=== PATIENT | male | born 1955 | race Caucasian/White ===

== ENCOUNTER 2019-10-21 08:15 | Day surgery (SDC) | payer OTHER, SELFPAY ==
[2019-10-14 14:42] VITALS: BMI 24.8
[2019-10-21] VITALS (8 sets, daily range): BP systolic 118–177; BP diastolic 54–88; PULSE 50–73; RESP 11–24; TEMP 36.1–36.4; O2SAT 94–99; BMI 24.8
[2019-10-21] MEDS: LACTATED RINGERS 1,000 ML 42 ML IV ×2 (09:20→12:10)
--- NOTE | 2019-10-21 10:28 | PM.PREOP ---
Pre-operative Note Interval Note History & Physical reviewed/Exam performed by Physician: Yes Changes to H&P: No
[2019-10-21] MEDS: CEFAZOLIN 2 GM/100 ML FROZ.PIGGY IV (10:43)
--- NOTE | 2019-10-21 11:14 | SUR.OPER ---
Supine on padded OR bed, head on pillow, arms padded and tucked at sides, legs uncrossed, safety belt at thigh, tape over blanket over lower legs .
[2019-10-21] MEDS: BUPIVACAINE 0.25% W/ EPI 30 ML VIAL 75 ML INJ (11:29)
--- NOTE | 2019-10-21 13:27 | PM.OP.1 ---
Operative Date/Time/Diagnoses Date of procedure: 10/21/19 Time of procedure: 13:27 Pre-op diagnosis: bilateral inguinal hernias Post-op diagnosis: same Procedure & Clinicians Procedure: Laparoscopic mesh repair of bilateral direct inguinal hernias Same procedure as scheduled: Yes Indications: Bilateral inguinal hernias, symptomatic Surgeon: Radha Knight Click Yes if Unassisted: Yes Anesthesia Type: General Operative Notes Prosthetic devices, grafts, tissues, transplants, or devices: Bard mesh large on left, medium on right Estimated Blood Loss (mL): 1 Blood products transfused: none Procedure in detail: Laparoscopic, takedown of peritoneum, reduced hernia on left, placed large bard mesh, secured with absorbatack, took down peritoneum on right, same procedure, very thin flap; brought midline fat over to make flap for closure The patient was brought into the operating room and placed supine on the OR table. Sequential compression devices were placed on both legs and turned on. Appropriate perioperative antibiotics were given prior to the start of surgery. General anesthesia was induced the patient was intubated. A Rodriguez catheter was placed sterilely in the bladder. The abdomen was prepped and draped in sterile fashion. Surgical time-out was conducted. Local anesthetic was injected under the skin just inferior to the umbilicus and a 5 mm vertical incision was made at this site. The umbilical stalk was grasped with a Charly and elevated. A Veress needle was passed through the fascia into proper position. The position was tested with a saline drop test which was appropriate for intra-abdominal Veress needle placement. The abdomen was then insufflated in the usual fashion. Once insufflated to 15 mm Hg the Veress needle was removed and a 5 mm optical trocar was placed under direct vision using a 5 mm 30 degree scope. Once the camera was inside the abdomen I took a look around. There was no injury from port placement. Two additional ports were placed in a similar fashion in the right and left mid clavicular line at the level of the umbilicus, one handbreadth lateral to the umbilicus. The umbilical port was upsized to a 10mm port. Attention was turned to the pelvis, and both inguinal regions were evaluated. On the left there was a large, deep direct inguinal hernia, and on the right there was a moderate direct inguinal hernia. Starting on the left side local anesthetic was in the infiltrated into the abdominal wall using 20 mL of 0.25% Marcaine with epi, in the region of the expected peritoneal incision. Metzenbaum scissors attached to cautery were then used to incise the peritoneum transversely from the midline laterally to the ASIS, 10 cm superior to the inguinal hernia defect. The peritoneal flap was developed down to the inguinal hernia defect. When the direct pseudo sac was pulled down, there was no indirect or femoral hernia seen. Good exposure was achieved with dissection down over the bladder, and exposing the entire pubic bone past midline. Laterally dissection was carried to the ASIS. The cord was skeletonized and the cord structures, vessels, and vas deferens were left intact. Once a good view of the entire myopectineal orifice was established, a large 3DMax macro porous mesh was then brought into the field. I placed it through the 10 mm port and positioned it within the surgical defect covering both hernia defects with 5 cm overlap in each direction. I then secured the mesh to the pubic tubercle in 2 locations using a [employer] AbsorbaTack absorbable Tacker. I then secured it to the abdominal wall at the superior edge of the mesh, far away from the triangle of doom and the triangle of pain. These tacks were placed avoiding the epigastric vessels as well. Once the mesh was secured in place I brought up the peritoneal flap. There was no clam shelling or bending of the mesh when the peritoneal flap was brought up. I then secured the peritoneum up to the abdominal wall using the AbsorbaTack, with dissolvable tacks. There was no gapping of the peritoneal flap or exposed mesh. Attention was then turned to the right side, and the same procedure was performed step by step as was performed on the left. Beginning with local anesthetic, 20 cc of 0.25% Marcaine with epi were infiltrated into the abdominal wall at the location of the expected incision and dissection. Once the entire myopectineal orifice was exposed and the cord structures were dissected free of the flap, a medium-size right-sided 3DMax macro porous mesh was then brought into the field, placed through the umbilical port as was done for the left side, and secured in place with the AbsorbaTack Tacker. The peritoneal flap was brought up, without tension, and was secured in the same way with the AbsorbaTack Tacker. At this point the mesh was well positioned, secured, and well covered. There was no exposed mesh, no bleeding, and the peritoneal flap was in good position. At this point the umbilical port site was closed with 0 Vicryl suture in the fascia using a Mode-Maisha suture Passer. Insufflation was then removed from the abdomen, and the umbilical port site was closed with 3-0 Vicryl in the subcutaneous layers, and 4 Monocryl in the skin. The other 2 port sites were closed with 4 Monocryl in the skin. Additional local anesthetic was infiltrated into the port sites for a total of 75 mL for the case. Each port site was sealed with Dermabond. Local anesthetic was given at each of the port sites and in the fascia. This concluded the procedure. At this point the needle sponge and instrument counts were correct. Patient was awakened from anesthesia and extubated. The Rodriguez catheter was removed, and the testicles were brought down to ensure they were in proper position. He was transferred to the postanesthesia care unit in stable condition. Complications: none Post-operative Condition: stable Disposition: PACU
== END 2019-10-21 15:04 | disposition home or self-care (01) ==
PROVIDERS: PCP Family Medicine; Referring Provider Surgery; Visit Provider Surgery
PROC: 0YQ64ZZ Repair Left Inguinal Region, Percutaneous Endoscopic Approach (ICD-10-PCS; CPT 49650; principal; 2019-10-21 10:15)
DX: K40.20 Bilateral inguinal hernia, without obstruction or gangrene, not specified as recurrent (principal)
CPT/HCPCS: 49650; C1781; J0330; J0690; J1100; J2405; J2704; J3010

== ENCOUNTER → 2019-11-18 12:36 | Outpatient (CLI) | payer OTHER, SELFPAY ==
[2019-11-18 14:03] LABS: INR 1.3 (0.9-1.3); Prothrombin Time 14.9 SECONDS (10.1-12.7)
== END ==
PROVIDERS: PCP Family Medicine; Visit Provider Family Medicine
DX: R31.0 Gross hematuria (principal)
CPT/HCPCS: 85610

== ENCOUNTER → 2019-11-20 07:17 | Outpatient (CLI) | payer OTHER, SELFPAY ==
--- NOTE | 2019-11-20 | DI.US.S_ITS ---
PROCEDURE: US ABDOMEN COMPLETE INDICATIONS: GROSS HEMATURIA TECHNIQUE: Real-time scanning was performed of the abdominal and retroperitoneal organs, with image documentation. COMPARISON: None. FINDINGS: Liver: Liver is normal in size and homogeneous in echotexture. Gallbladder: Nondilated. No stones or sludge. Normal gallbladder wall thickness. No pericholecystic fluid. Negative sonographic Pires's sign. Biliary ducts: Intrahepatic bile ducts are non-dilated. Extrahepatic bile duct caliber measures 6 mm. Normal is 6-7 mm or less in diameter, or 10 mm or less post-cholecystectomy. Pancreas: Visualized portions of the pancreas are sonographically normal. Spleen: Spleen is normal in size and homogeneous in echotexture. Kidneys: Kidneys are normal in size and echotexture. Right kidney measures 12.8 cm long; left kidney measures 12.5 cm long. No hydronephrosis or nephrolithiasis. No solid masses. Left simple peripelvic cyst measuring 2.2 cm. Aorta: Visualized aorta is normal in caliber at less than 3 cm. Iliacs: Proximal common iliac arteries are normal in caliber at less than 2.5 cm. IVC: Intrahepatic inferior vena cava is patent. Miscellaneous: No free abdominal fluid. IMPRESSION: 1. No hydronephrosis demonstrated. Suspected small simple left peripelvic cyst. 2. No renal mass identified. 3. No gallstones. Consider CT IVP for further evaluation of the upper urinary tracts in this patient with hematuria. Dictated by: Roger Sanches M.D. on 11/20/2019 at 8:59 Approved by: Roger Sanches M.D. on 11/20/2019 at 9:07
== END ==
PROVIDERS: PCP Family Medicine; Referring Provider Family Medicine; Visit Provider Family Medicine
DX: R31.0 Gross hematuria (principal)
CPT/HCPCS: 76700

== ENCOUNTER → 2021-09-20 12:07 | Outpatient (CLI) | payer OTHER, SELFPAY ==
--- NOTE | 2021-09-20 12:11 | DI.RAD.S_ITS ---
PROCEDURE: XR FINGER RT MIN 2V INDICATIONS: RT RING FINGER INJURY TECHNIQUE: AP hand, 2 views of the right 4th finger(s) acquired. COMPARISON: None. FINDINGS: Bones: No fractures or dislocations. No suspicious bony lesions. Soft tissues: No suspicious soft tissue calcifications. Soft tissue swelling noted in the 4th finger. No soft tissue gas or radiodense foreign body. IMPRESSION: No fracture. No osseous lesion. If symptoms and/or clinical suspicion for pathology persists, further assessment with repeat radiographs (7-10 days) or advanced imaging (e.g. CT, MRI or bone scan) should be considered. Dictated by: Abida Coy MD, PhD on 09/20/2021 at 13:29 Approved by: Abida Coy MD, PhD on 09/20/2021 at 13:29
== END ==
PROVIDERS: PCP Family Medicine; Referring Provider Family Medicine; Visit Provider Family Medicine
DX: M79.5 Residual foreign body in soft tissue (principal)
CPT/HCPCS: 73140

== ENCOUNTER → 2023-07-20 11:50 | Outpatient (CLI) | payer MEDICARE, OTHER, SELFPAY ==
[2023-07-20 12:53] LABS: Influenza A - CEPHEID Flu A NEGATIVE (NEGATIVE); Influenza B - CEPHEID Flu B NEGATIVE (NEGATIVE); Respiratory Syncytial Virus Negative (Negative)
[2023-07-20 13:02] LABS: COVID-19 CEPHEID 4-PLEX PCR Negative (Negative)
== END ==
PROVIDERS: PCP Family Medicine; Visit Provider Nurse Practitioner Family
DX: R05.9 Cough, unspecified (principal); J02.9 Acute pharyngitis, unspecified
CPT/HCPCS: 0241U; 87070

== ENCOUNTER → 2024-05-11 10:45 | Outpatient (CLI) | payer MEDICARE, OTHER, SELFPAY ==
--- NOTE | 2024-05-11 | DI.RAD.S_ITS ---
PROCEDURE: XR CHEST 2V INDICATIONS: chest pain TECHNIQUE: 2 views of the chest were acquired. COMPARISON: None. FINDINGS: Surgical changes and devices: None. Lungs and pleura: Lungs are clear. No pleural effusions or pneumothorax. Mediastinum: Mediastinal contours are normal. Heart size is normal. Bones and chest wall: No suspicious bony abnormalities. Soft tissues appear unremarkable. IMPRESSION: No acute cardiopulmonary abnormality is seen. Dictated by: Alisa Back M.D. on 05/11/2024 at 15:01 Approved by: Alisa Back M.D. on 05/11/2024 at 15:02
== END ==
PROVIDERS: PCP Family Medicine; Referring Provider Family Medicine; Visit Provider Family Medicine
DX: R07.9 Chest pain, unspecified (principal)
CPT/HCPCS: 71046

== ENCOUNTER 2024-08-03 10:16 | Day surgery (SDC) | payer MEDICARE, OTHER, SELFPAY ==
--- NOTE | 2024-08-03 11:01 | PM.HP.1 ---
History of Present Illness History of Present Illness [place] [facility] [place] [facility] Medical History Arthritis Bilateral inguinal hernia Hx of laceration of skin (~2012) Surgical History History of ventral hernia repair Hx of elbow surgery (~2014) Hx of hernia repair (~1989) Family History Father Heart disease Mother Cancer Social History marital status: household members: spouse occupational status: previously employed Smoking Status: Former smoker alcohol intake: current Meds Home Medications and Allergies Home Medications Medication Instructions Recorded Confirmed Type aspirin 81 mg tablet,delayed 81 mg PO DAILY 09/29/19 07/20/23 History release (Adult Aspirin Regimen) cholecalciferol (vitamin D3) 25 1,000 unit PO DAILY 09/29/19 07/20/23 History mcg (1,000 unit) capsule coenzyme Q10 200 mg capsule 200 mg PO DAILY 09/29/19 07/20/23 History ginkgo biloba 40 mg tablet 120 mg PO DAILY 09/29/19 07/20/23 History cuppdgcvpmn-T-Kqszucnglljxplbmrc 1 tab PO 4-6XD 09/29/19 07/20/23 History 500 mg-200 mg tablet multivitamin 1 cap PO BID 09/29/19 07/20/23 History omega-3 fatty acids 1,000 mg 1,200 mg PO DAILY 09/29/19 07/20/23 History capsule (Fish Oil Concentrate) docusate sodium 100 mg capsule 100 mg PO BID pervent post op 10/21/19 07/20/23 Rx constipation #60 caps amoxicillin 500 mg-potassium 1 tab PO TID #15 tabs 07/20/23 07/20/23 Rx clavulanate 125 mg tablet (Augmentin) Allergies Allergy/AdvReac Type Severity Reaction Status Date / Time ANTI-INFLAMMATORY DRUG Allergy Unknown ITCHY RASH Uncoded 08/03/24 11:01 Exam Narrative Exam Narrative: Oropharynx free of lesions Chest clear to auscultation percussion Cardiac exam reveals no S3 or murmur Assessment & Plan Assessment & Plan narrative: Need for screening colonoscopy. Risks, benefits, alternatives have been explained. Time-Based Coding :: [TOTAL MINUTES] spent with patient and on the chart (including review of chart, obtaining history, exam, reviewing outside data, placing orders, documenting exam and treatment plan, and counseling patient) on [DATE].
--- NOTE | 2024-08-03 11:02 | PM.OP.COLON ---
Operative Date/Time/Diagnoses Date of procedure: 08/03/24 Pre-op diagnosis: See indication and findings Procedure & Clinicians Study performed: Colonoscopy Indications: Screening Procedure Notes Procedure in detail: After informed consent was obtained the patient was placed in left lateral decubitus position. The video colonoscope was introduced the rectum slowly advanced cecum. Preparation was good. On slow withdrawal mucosa was carefully examined. The scope was removed. The patient tolerated procedure well. Blood loss none Complications none Sedation mac Findings 1. Normal colonoscopy to cecum Patient should have follow-up colonoscopy in 10 years
[2024-08-03 11:14] VITALS: BP 145/84; PULSE 50; RESP 16; TEMP 36.6; O2SAT 100
[2024-08-03 11:58] VITALS: BP 128/85; PULSE 62; RESP 16; TEMP 36.2; O2SAT 98
[2024-08-03 12:00] VITALS: BP 120/85; PULSE 70; RESP 13; O2SAT 98
[2024-08-03 12:07] VITALS: BP 121/80; PULSE 80; RESP 16; TEMP 36.2; O2SAT 98
== END 2024-08-03 12:25 | disposition home or self-care (01) ==
PROVIDERS: PCP Family Medicine; Referring Provider Internal Medicine Gastroenterology; Visit Provider Internal Medicine Gastroenterology
PROC: 0DJD8ZZ Inspection of Lower Intestinal Tract, Via Natural or Artificial Opening Endoscopic (ICD-10-PCS; CPT 45378; principal; 2024-08-03 11:30)
DX: Z12.11 Encounter for screening for malignant neoplasm of colon (principal); E87.5 Hyperkalemia; S09.90XA Unspecified injury of head, initial encounter; R07.9 Chest pain, unspecified; W18.30XA Fall on same level, unspecified, initial encounter; Z79.82 Long term (current) use of aspirin
CPT/HCPCS: G0121; 36415; 71045; 80053; 82550; 83690; 83735; 83880; 84132; 84484; 85025; 85610; 85730; 93005; 96360; 99284; J2704; J3010

== ENCOUNTER 2024-08-03 15:26 | Emergency (ER) | payer MEDICARE, OTHER, SELFPAY ==
[2024-08-03] VITALS (13 sets, daily range): BP systolic 133–152; BP diastolic 73–83; PULSE 52–64; RESP 17–26; TEMP 37.2; O2SAT 96–100; BMI 22.3
--- NOTE | 2024-08-03 16:24 | DI.RAD.S_ITS ---
PROCEDURE: XR CHEST 1V INDICATIONS: chest pain TECHNIQUE: One view of the chest was acquired. COMPARISON: [facility], CR, XR CHEST 2V, 05/11/2024, 10:48. FINDINGS: Surgical changes and devices: None. Lungs and pleura: Low lung volumes are seen bilaterally. Lungs are clear. No pleural effusions or pneumothorax. Mediastinum: Mediastinal contours appear normal. Heart size is normal. Bones and chest wall: No suspicious bony lesions. Overlying soft tissues appear unremarkable. IMPRESSION: No acute cardiopulmonary abnormality is seen. Approved by: Aiden Celestin M.D. on 08/03/2024 at 17:29
--- NOTE | 2024-08-03 16:49 | EKG_ITS ---
[place] [id number] [place] [id number] Test Date: 2024-08-03 Pat Name: Javier Tay Department: [facility] Room: Gender: Male It Service Manager: CONRAD : 1955 Requested By: Order Number: [id number] Reading MD: Ahmet Arellano Measurements Intervals [place] Rate: 57 P: 33 GA: 206 QRS: -24 QRSD: 90 T: -16 QT: 402 QTc: 391 Interpretive Statements Sinus bradycardia Minimal voltage criteria for LVH, may be normal variant ( Fredrick product ) Electronically Signed On 08-05-2024 19:03:14 PST by Ahmet Arellano
[2024-08-03 16:56] LABS: Add Manual Diff / Slide Review NO; Basophils Absolute Auto 0 /uL (0-100); Basophils Percent Auto 0.5 % (0-2); Eosinophils Absolute Auto 200 /uL (0-450); Eosinophils Percent Auto 2.3 % (2-4); Hematocrit 48.2 % (41-53); Hemoglobin 16.1 g/dL (13.5-17.5); Lymphocytes Absolute Auto 1200 /uL (1100-4500); Mean Corpuscular HGB Conc 33.4 % (30-36); Mean Corpuscular Hemoglobin 30.6 PG (26-34); Mean Corpuscular Volume 91.4 fL (80-100); Monocytes Absolute Auto 700 /uL (0-900); Monocytes Percent Auto 7.3 % (3-14); Neutrophils Absolute Auto 7500 /uL (1500-7000); Neutrophils Percent Auto 77.9 % (50-75); Platelet Count 266 X10^3/uL (150-400); Red Blood Cell Count 5.27 X10^6/uL (4.5-5.9); Red Cell Distribution Width 13.8 % (11.6-14.8); White Blood Cell Count 9.6 X10^3/uL (4.5-11.0)
[2024-08-03 17:07] LABS: INR 1.2 (0.9-1.3); Prothrombin Time 13.8 SECONDS (9.4-12.5)
[2024-08-03 17:09] LABS: PTT Partial Thromboplastin Tim 32 SECONDS (25.1-36.5)
[2024-08-03 17:11] LABS: Alanine Aminotransferase 31 IU/L (<50); Albumin 4.6 g/dL (3.5-5.0); Albumin Globulin Ratio 1.2 (1.0-2.8); Alkaline Phosphatase 71 U/L (38-126); Aspartate Aminotransferase 43 IU/L (17-59); BUN Creatinine Ratio 16.8 (6-22); Bilirubin Total 1.3 mg/dL (0.2-1.3); Blood Urea Nitrogen 20 mg/dL (9-20); Calcium 9.8 mg/dL (8.4-10.2); Carbon Dioxide 29 mmol/L (22-32); Chloride 101 mmol/L (98-107); Creatine Kinase 121 U/L (55-170); Estimated Glomerular Filt Rate > 60 mL/min (>60); Globulin 3.8 g/dL (1.7-4.1); Glucose 98 mg/dL (80-110); HEMOLYSIS < 15 (0-50); Lipase 191 U/L (23-300); Sodium 134 mmol/L (137-145); Total Protein 8.4 g/dL (6.3-8.2)
[2024-08-03 17:18] LABS: Potassium 5.6 mmol/L (3.4-5.1)
[2024-08-03 17:23] LABS: NT-proBNP (BNP-Adult 18+) 153 pg/mL (<125); Troponin I < 0.012 ng/mL (0.01-0.034)
--- NOTE | 2024-08-03 18:29 | ED.FALL ---
HPI - Fall General Chief Complaint: Fall Stated Complaint: GLF, head injury, no blood thinners Time Seen by Provider: 08/03/24 15:49 Source: patient Mode of arrival: Ambulatory History of Present Illness HPI Narrative: Patient is a 68-year-old male history of hyperlipidemia presenting today with syncopal episode. He reports that he was prepping for a colonoscopy. He was drinking 96 oz of Gatorade along with magnesium citrate. He started the prep last night around 6:00 p.m. this morning he took his 2nd dose of the combo and went to the kitchen. He does not remember exactly what happened but he did fall and hit his head. He was able to get up and go back to bed. He proceeded with a colonoscopy which is reported normal. He later went back to the kitchen where he saw some of the skin from his scalp. He has not on anti coagulation medication he does take a baby aspirin daily. No numbness tingling or weakness. No ongoing headache confusion neck pain nausea or vomiting. He was discussing what happened with friends and they encouraged him to come to the emergency department. He denies any sort of chest pain or palpitations. Reports that he frequently gets dizzy when he stands up cause his resting heart rate is in the 50s. No abdominal pain or any other symptoms Related Data Home Medications Medication Instructions Recorded Confirmed aspirin 81 mg tablet,delayed 81 mg PO DAILY 09/29/19 08/03/24 release (Adult Aspirin Regimen) cholecalciferol (vitamin D3) 25 1,000 unit PO DAILY 09/29/19 08/03/24 mcg (1,000 unit) capsule coenzyme Q10 200 mg capsule 200 mg PO DAILY 09/29/19 08/03/24 ginkgo biloba 40 mg tablet 120 mg PO DAILY 09/29/19 08/03/24 lydhysdrrim-J-Qwyemqyvrygvlxqpyz 1 tab PO 4-6XD 09/29/19 08/03/24 500 mg-200 mg tablet multivitamin 1 cap PO BID 09/29/19 08/03/24 omega-3 fatty acids 1,000 mg 1,200 mg PO DAILY 09/29/19 07/20/23 capsule (Fish Oil Concentrate) Allergies Allergy/AdvReac Type Severity Reaction Status Date / Time ANTI-INFLAMMATORY DRUG Allergy Unknown ITCHY RASH Uncoded 08/03/24 11:01 Patient History Medical History Arthritis Bilateral inguinal hernia Hx of laceration of skin (~2012) Surgical History History of ventral hernia repair Hx of elbow surgery (~2014) Hx of hernia repair (~1989) Family History Father Heart disease Mother Cancer Social History marital status: household members: spouse occupational status: previously employed Smoking Status: Former smoker alcohol intake: current Smoking Status: Former smoker alcohol intake frequency: a few times a week Substance Use Type: marijuana Exam Initial Vital Signs Initial Vital Signs: Vital Signs Temperature 99 F 08/03/24 15:35 Pulse Rate 63 08/03/24 15:35 Respiratory Rate 20 08/03/24 15:35 Blood Pressure 143/83 H 08/03/24 15:35 Pulse Oximetry 100 08/03/24 15:35 Oxygen Delivery Method Room Air 08/03/24 15:35 GENERAL: Alert pleasant 68-year-old male HEENT: Head atraumatic,EOMI, pupils reactive, face symmetric, moist mucous membranes NECK: no vertebral tenderness CARDIOVASCULAR: Regular rate and rhythm without murmurs, rubs or gallops. RESPIRATORY: Breath sounds equal bilaterally, no wheezes rales or rhonchi. ABDOMEN: Soft, nontender. Normoactive bowel sounds all 4 quadrants. No guarding or rebound. EXTREMITIES: Normal range of motion, no clubbing or edema. Neurovascularly intact NEUROLOGICAL: Alert and oriented x4.Normal gait and speech. Cranial nerves II through XII grossly intact. Marketing And Development Coordinator strength equal bilaterally. SKIN: Warm, dry, no laceration, no petechiae, no rashes or lesions. Course Orders Ordered: ED Orders 08/03/24 16:24 XR chest 1V Stat EKG-12 Lead Stat 08/03/24 16:48 Complete Blood Count AUTO DIFF Stat Comprehensive Metabolic Panel Stat Lipase Stat Magnesium Stat NT-proBNP (BNP-Adult 18+) Stat PTT Partial Thromboplastin Chaitanya Stat Prothrombin Time INR Stat Troponin & CK Cardiac Panel Stat 08/03/24 20:00 Potassium Stat Discontinued Medications Sodium Chloride (Normal Saline 0.9%) 1,000 mls @ 1,000 mls/hr IV BOLUS ONE Stop: 08/03/24 19:39 Last Infusion: 08/03/24 19:55 Dose: Infused Documented By: Admin: 08/03/24 19:23 Dose: 1,000 mls/hr Documented By: TAJ Vital Signs Vital signs: Vital Signs - 8 hr 08/03/24 17:00 08/03/24 17:00 08/03/24 17:00 Pulse Rate 63 64 Respiratory Rate 26 H 22 Blood Pressure 145/78 H 145/78 H Pulse Oximetry 97 97 Oxygen Delivery Method Room Air 08/03/24 17:30 08/03/24 17:30 08/03/24 17:30 Pulse Rate 58 L 58 L Respiratory Rate 20 Blood Pressure 137/79 137/79 Pulse Oximetry 96 96 Oxygen Delivery Method Room Air 08/03/24 18:00 08/03/24 18:00 08/03/24 18:00 Pulse Rate 54 L 54 L Respiratory Rate 22 22 Blood Pressure 136/77 136/77 Pulse Oximetry 97 97 Oxygen Delivery Method 08/03/24 18:30 08/03/24 18:30 08/03/24 18:30 Pulse Rate 60 60 Respiratory Rate 20 Blood Pressure 136/74 136/74 Pulse Oximetry 97 97 Oxygen Delivery Method 08/03/24 19:00 08/03/24 19:00 08/03/24 19:00 Pulse Rate 52 L 53 L Respiratory Rate 23 23 Blood Pressure 141/77 H 141/77 H Pulse Oximetry 99 99 Oxygen Delivery Method Room Air 08/03/24 19:30 08/03/24 20:00 08/03/24 20:27 Pulse Rate 54 L 54 L 52 L Respiratory Rate 24 17 18 Blood Pressure 133/77 Pulse Oximetry 97 100 98 Oxygen Delivery Method Room Air 08/03/24 20:27 08/03/24 20:30 08/03/24 20:30 Pulse Rate 52 L Respiratory Rate 20 Blood Pressure 137/77 145/73 H Pulse Oximetry 100 Oxygen Delivery Method MDM - Fall Lab Data 08/03/24 16:48 08/03/24 20:00 Labs: Lab Results 08/03/24 08/03/24 Range/Units 16:48 20:00 WBC 9.6 (4.5-11.0) X10^3/uL RBC 5.27 (4.5-5.9) X10^6/uL Hgb 16.1 (13.5-17.5) g/dL Hct 48.2 (41-53) % MCV 91.4 (80-100) fL MCH 30.6 (26-34) PG MCHC 33.4 (30-36) % RDW 13.8 (11.6-14.8) % Plt Count 266 (150-400) X10^3/uL Neut % (Auto) 77.9 H (50-75) % Lymph % (Auto) 12.0 L (25-40) % [place] % (Auto) 7.3 (3-14) % Eos % (Auto) 2.3 (2-4) % Baso % (Auto) 0.5 (0-2) % Neut # (Auto) 7500 H (0692-9961) /uL Lymph # (Auto) 1200 (8370-4903) /uL [place] # (Auto) 700 (0-900) /uL Eos # (Auto) 200 (0-450) /uL Baso # (Auto) 0 (0-100) /uL PT 13.8 H (9.4-12.5) SECONDS INR 1.2 (0.9-1.3) APTT 32 (25.1-36.5) SECONDS Sodium 134 L (137-145) mmol/L Potassium 5.6 H 4.1 D (3.4-5.1) mmol/L Chloride 101 (98-107) mmol/L Carbon Dioxide 29 (22-32) mmol/L BUN 20 (9-20) mg/dL Creatinine 1.19 (0.66-1.25) mg/dL Estimated GFR > 60 (>60) mL/min BUN/Creatinine Ratio 16.8 (6-22) Glucose 98 (80-110) mg/dL Calcium 9.8 (8.4-10.2) mg/dL Magnesium 2.0 (1.6-2.3) mg/dL Total Bilirubin 1.3 (0.2-1.3) mg/dL AST 43 (17-59) IU/L ALT 31 (<50) IU/L Alkaline Phosphatase 71 (38-126) U/L Total Creatine Kinase 121 (55-170) U/L Troponin I < 0.012 (0.01-0.034) ng/mL NT-Pro-B Natriuret Pep 153 H (<125) pg/mL Total Protein 8.4 H (6.3-8.2) g/dL Albumin 4.6 (3.5-5.0) g/dL Globulin 3.8 (1.7-4.1) g/dL Albumin/Globulin Ratio 1.2 (1.0-2.8) Lipase 191 (23-300) U/L Imaging Data Chest x-ray: Radiologist's Impression: PROCEDURE: XR CHEST 1V INDICATIONS: chest pain TECHNIQUE: One view of the chest was acquired. COMPARISON: [facility], , XR CHEST 2V, 05/11/2024, 10:48. FINDINGS: Surgical changes and devices: None. Lungs and pleura: Low lung volumes are seen bilaterally. Lungs are clear. No pleural effusions or pneumothorax. Mediastinum: Mediastinal contours appear normal. Heart size is normal. Bones and chest wall: No suspicious bony lesions. Overlying soft tissues appear unremarkable. IMPRESSION: No acute cardiopulmonary abnormality is seen. Approved by: Aiden Celestin M.D. on 08/03/2024 at 17:29 ECG Data Attestation: I personally reviewed and interpreted this ECG as follows: Prior ECG tracings: not available for review Interpretation: Normal sinus rhythm rate 57 HI interval 206 QRS 90 QTC 391 no ischemic changes no peaked T-waves no priors to compare MDM Narrative Medical decision making narrative: [facility] CC: Fall Complicating co-morbidities: Preparing for colonoscopy Medical records reviewed: Colonoscopy procedure reviewed today Differential considered: Cardiac syncope dehydrated cheng electrolyte abnormality Exam documented above, pertinent findings include: Alert well-appearing 68-year-old male. He does have a small abrasion on the most superior part of his head, part of his hairs missing but no active bleeding or laceration. Neck is nontender interactive digital media specialist strength equal bilaterally Lab Test results independently reviewed as above. Pertinent findings: Potassium 5.6-->4.1 Creatinine 1.19 No prior blood work to compare all other blood work within normal limits Independently reviewed EKG as above no ischemia no priors to compare Imaging studies independently reviewed: Chest x-ray no acute cardiopulmonary process Consultations: None Treatments: 1 L IV fluids Re-evaluations: Patient remains awake alert nontoxic following directions Discussion: Patient 68-year-old male presents today with syncopal episode and head injury. I think this is due to his ongoing bradycardia along with colonoscopy prep and some mild dehydration. Vital they are actually stable he is awake alert oriented. He does have an area on his scalp were of his hair is missing there is no actual bleeding or laceration. He has no anticoagulation headache nausea vomiting or need for head CT at this time. He is found to be hyperkalemic with a potassium of 5.6. This maybe secondary to the excessive Gatorade drinking. He was given 1 L of fluid repeat potassium is 4.1. At this time I see no further need for workup. Patient and updated on patient's symptoms test results and recommendations. All questions and issues have been addressed. Discharge Plan Departure Patient Disposition: Home Clinical Impression: Fall, Acute hyperkalemia Instructions: How to Prevent Falls Activity Restrictions/Additional Instructions: *You have been diagnosed with fall *What to do: At this time your potassium has improved back to normal. You may return to your normal daily activities and living. *Continue to take medications as directed *Follow up with your primary care provider in 2-3 days or call [phone] *Return to ER if you should have worsening headache nausea vomiting weakness or any new, worsening or concerning symptoms Prescriptions: No Action multivitamin Capsule 1 cap PO BID aspirin [Adult Aspirin Regimen] 81 mg tablet,delayed release (DR/EC) 81 mg PO DAILY ginkgo biloba 40 mg tablet 120 mg PO DAILY cholecalciferol (vitamin D3) 1,000 unit capsule 1,000 unit PO DAILY coenzyme Q10 200 mg capsule 200 mg PO DAILY tcplcpnvfin-A-Ylcctjxpfzxyzka 500-200 mg tablet 1 tab PO 4-6XD omega-3 fatty acids [Fish Oil Concentrate] 1,000 mg capsule 1,200 mg PO DAILY Referrals: Thaddeus Morris MD [Primary Care Provider] - Stand Alone Forms: Patient Portal/API/Survey
[2024-08-03] MEDS: SODIUM CHLORIDE 0.9% 1,000 ML 1000 ML IV (19:23)
[2024-08-03 20:16] LABS: HEMOLYSIS < 15 (0-50); Potassium 4.1 mmol/L (3.4-5.1)
== END 2024-08-03 20:40 | disposition home or self-care (01) ==
PROVIDERS: Emergency Medicine; Emergency Provider Emergency Medicine; PCP Family Medicine
DX: E87.5 Hyperkalemia (principal); S09.90XA Unspecified injury of head, initial encounter; R07.9 Chest pain, unspecified; W18.30XA Fall on same level, unspecified, initial encounter; Z79.82 Long term (current) use of aspirin
CPT/HCPCS: 36415; 71045; 80053; 82550; 83690; 83735; 83880; 84132; 84484; 85025; 85610; 85730; 93005

== ENCOUNTER → 2025-04-22 09:18 | Outpatient (CLI) | payer MEDICARE, OTHER, SELFPAY ==
--- NOTE | 2025-04-22 09:20 | DI.US.S_ITS ---
PROCEDURE: US ABD AORTA ANEURYSM SCREEN INDICATIONS: hx of smoking TECHNIQUE: Real time scanning was performed of the aorta and iliac arteries, with image documentation. COMPARISON: [facility], , US ABDOMEN COMPLETE, 11/20/2019, 7:41. FINDINGS: Aorta: Proximal aortic diameter measures 2.5 cm. Mid-aorta measures 2.3 cm. Distal aortic diameter is 1.9 cm. Iliac arteries: Right common iliac artery measures 1.3 cm. Left common iliac artery measures 1.4 cm. IMPRESSION: Negative for aneurysm. By published criteria, ultrasound follow-up is recommended in 5 years. Dictated by: Yandel Alberts M.D. on 04/22/2025 at 10:35 Approved by: Yandel Alberts M.D. on 04/22/2025 at 10:36
== END ==
LOC: US 09:20
PROVIDERS: PCP Family Medicine; Referring Provider Family Medicine; Visit Provider Family Medicine
DX: Z87.891 Personal history of nicotine dependence (principal)
CPT/HCPCS: 76706